=== PATIENT | female | born 1995 | race Two or more races ===

== ENCOUNTER 2023-09-08 16:01 | Emergency (ER) | payer OTHER ==
[~2023-09-08] VITALS: Ht 154.9 cm; Wt 89.8 kg
[2023-09-08 18:31] LABS: HEMATOCRIT 39.1 % (36.0-45.00); HEMOGLOBIN 13.1 g/dL (12.0-15.00); MEAN CORPUSCULAR HEMOGLOBIN 26.1 pg (27.00-32.0); MEAN CORPUSCULAR HGB CONC 33.5 g/dl (32.0-36.0); PLATELET COUNT 292 K/uL (150-450); RED BLOOD COUNT 5.01 M/uL (4.00-6.00); RED CELL DISTRIBUTION WIDTH 14.8 % (11.5-14.5)
[2023-09-08 18:52] LABS: CALCIUM 8.9 mg/dL (8.5-10.1); CREATININE SERUM 0.78 mg/dL (0.55-1.02); GFR 89.27; POTASSIUM 3.68 mEq/L (3.5-5.1)
[2023-09-08 19:16] LABS: URINE APPEARANCE Clear; URINE BILIRRUBIN Negative (NEGATIVE); URINE BLOOD Negative; URINE COLOR Yellow; URINE GLUCOSE Negative (NEGATIVE); URINE LEUKOCYTE Moderate; URINE NITRATE Negative; URINE PROTEIN Negative (NEGATIVE); URINE UROBILINOGEN 0.2 E.U./dl
[2023-09-08 19:19] LABS: URINE BACTERIA 36.5 uL (0.0-1933); URINE WBC 170.8 uL (0.0-23.2)
[2023-09-08 19:20] LABS: URINE RBC 0.6 uL (0.0-20.8)
== END 2023-09-08 19:52 | disposition home or self-care (01) ==
LOC: ER 16:03
PROVIDERS: General Practice
DX: O23.40 Unspecified infection of urinary tract in pregnancy, unspecified trimester (principal); N39.0 Urinary tract infection, site not specified; Z91.013 Allergy to seafood